=== PATIENT | male | born 1940 | race Caucasian/White ===

== ENCOUNTER 2020-05-14 15:13 | Emergency (ER) | payer MEDICARE, OTHER ==
[2020-05-14 16:00] LABS: INR 1.13 (0.9-1.2); PROTHROMBIN TIME 13.8 SECONDS (11.4-13.6); PTT 25.1 SECONDS (22.2-34.7)
[2020-05-14 16:03] LABS: BASOPHIL 0.3 % (0-2); EOSINOPHIL 1.8 % (0-7); HCT 40.5 % (42.0-52.0); HGB 13.7 g/dl (13.2-18.0); LYMPHOCYTE 9.7 % (15-48); MCH 30.6 pg (25.0-31.0); MCHC 33.8 g/dL (32.0-36.0); MCV 90.4 fL (78.0-100.0); MONOCYTE 9.4 % (0-12); MPV 14.2 fL (6.0-9.5); NEUTROPHIL 78.5 % (41-80); NRBC 0; PLT 127 K/uL (150-400); RBC 4.48 M/uL (4.70-6.00); RDW 13.2 % (11.5-14.0); WBC 7.2 K/uL (4.0-10.5)
[2020-05-14 16:07] LABS: ALBUMIN 3.1 g/dL (3.4-5.0); BILIRUBIN - TOTAL 0.6 mg/dL (0.2-1.0); CREATININE 0.96 mg/dL (0.67-1.17); GLOBULIN (CALCULATION) 2.7 g/dL; POTASSIUM 3.9 mmol/L (3.5-5.1); TOTAL PROTEIN 5.8 g/dL (6.4-8.2)
[2020-05-14 16:16] LABS: LACTIC ACID 1.7 mmol/L (0.4-1.9)
[2020-05-14 16:53] LABS: BILIRUBIN NEGATIVE (NEGATIVE); BLOOD NEGATIVE Ery/uL (NEGATIVE); CLARITY CLEAR (CLEAR); COLOR YELLOW (YELLOW); GLUCOSE (U) NORMAL (NORMAL); LEUKOCYTES NEGATIVE Leu/uL (NEGATIVE); NITRITE NEGATIVE (NEGATIVE); PROTEIN TRACE (LOW) mg/dL (NEGATIVE); SPECIFIC GRAVITY 1.025 (1.001-1.030); UROBILINOGEN 0.2 mg/dL (0.2-1.0); pH 5.5 (5.0-9.0)
[2020-05-14 17:00] LABS: BACTERIA 1+; MUCOUS MODERATE
== END 2020-05-14 17:51 | disposition home or self-care (01) ==
LOC: FER 15:13
PROVIDERS: Emergency Medicine
DX: H81.10 Benign paroxysmal vertigo, unspecified ear (principal); R03.1 Nonspecific low blood-pressure reading; G31.9 Degenerative disease of nervous system, unspecified; I10 Essential (primary) hypertension; Z87.891 Personal history of nicotine dependence; Z79.899 Other long term (current) drug therapy
CPT/HCPCS: 36415; 70450; 71045; 80053; 81001; 83605; 84145; 84484; 85025; 85610; 85730; 87040; 87088; 93005